=== PATIENT | male | born 1965 | race Two or more races ===

== ENCOUNTER 2018-07-29 14:52 | Emergency (ER) | payer BC ==
[~2018-07-29] VITALS: Ht 180.3 cm; Wt 84.8 kg
[2018-07-29] MEDS ORDERED: methylPREDNISolone SOD SUCC 125 MG/2ML VIAL ONE (15:18)
--- NOTE | 2018-07-29 15:23 | NUR ---
PREM 87 FROM HOME C/O ALLERGIC REACTION POSSIBLE INSECT BITE. EPI 0.5MG IM GIVEN AND BENADRYL 50MG IV GIVEN AROUND 1446. AOX4, AMB WITH STEADY GAIT, VSS, ON RA. NO ACUTE DISTRESS NOTED. AT BEDSIDE. READY FOR EVAL.
[2018-07-29] MEDS ORDERED: IPRATROPIUM NEB FS 0.5 MG/2.5 ML AMPUL.NEB NEB ONE (15:30)
[2018-07-29] MEDS ORDERED: methylPREDNISolone SOD SUCC 125 MG/2ML VIAL IV ONE (15:30)
[2018-07-29] MEDS ORDERED: ALBUTEROL FS 2.5 MG/3 ML VIAL.NEB NEB ONE (15:30)
[2018-07-29] MEDS ORDERED: FAMOTIDINE/PF INJ 20 MG/2 ML VIAL IV ONE ×2 (15:30→15:35)
[2018-07-29] MEDS ORDERED: IPRATROPIUM NEB FS 0.5 MG/2.5 ML AMPUL.NEB ONE (15:40)
[2018-07-29] MEDS ORDERED: ALBUTEROL FS 2.5 MG/3 ML VIAL.NEB ONE (15:40)
--- NOTE | 2018-07-29 15:40 | NUR ---
RT AT BEDSIDE FOR BREATHING TX
--- NOTE | 2018-07-29 16:59 | NUR ---
IV removed. Catheter intact and site benign. Pressure and 4x4 applied to site. No bleeding noted.Patient discharged to home in stable condition. Written and verbal after care instructions given. Patient verbalizes understanding of instruction.
[2018-07-29 17:04] VITALS: BP 133/99
== END 2018-07-29 17:00 | disposition home or self-care (01) ==
LOC: ER 15:00
DX: T63.481A Toxic effect of venom of other arthropod, accidental (unintentional), initial encounter (principal); R06.02 Shortness of breath; Z60.2 Problems related to living alone; Y92.89 Other specified places as the place of occurrence of the external cause
CPT/HCPCS: 94640 ×2; 96374; 96375; 99284; J2930; J3490

== ENCOUNTER 2025-02-18 19:58 | Emergency (ER) | payer BC ==
[~2025-02-18] VITALS: Ht 180.3 cm; Wt 73.0 kg
[2025-02-18 20:49] VITALS: TEMP 98.2
[2025-02-18] MEDS ORDERED: KETOROLAC TROMETHAMINE 15 MG/ML VIAL ONE ×2 (21:26→21:27)
[2025-02-18] MEDS: KETOROLAC TROMETHAMINE 15 MG/ML VIAL IV ONE (21:35)
[2025-02-18] MEDS ORDERED: BACLOFEN (10 MG) 10 MG TABLET ONE (21:38)
[2025-02-18] MEDS: BACLOFEN (10 MG) 10 MG TABLET PO ONE (21:40)
[2025-02-18 21:44] LABS: PLATELET COUNT (AUTO) 220 K/uL (150-450); RED BLOOD CELL COUNT(AUTO) 5.24 MIL/uL (4.5-6.0); RED CELL DISTRIBUTION WIDTH 13.1 % (11.5-15.0); WHITE BLOOD COUNT (AUTO) 10.2 K/uL (4.3-11.0)
[2025-02-18 21:52] LABS: CALCIUM, SERUM 9.3 mg/dL (8.5-10.1); CREATININE 1.0 mg/dL (0.6-1.3); SODIUM SERUM 142.0 mmol/L (136-145); UREA NITROGEN, BLOOD 16.0 mg/dL (7-18)
[2025-02-18] MEDS ORDERED: DIATR MEGLU/DIATRIZOATE SODIUM 120 ML BOTTLE (GASTROGRAPHIN) ONE (22:11)
[2025-02-18] MEDS ORDERED: CT SWABBABLE VALVE TRANS SET 1 EA INFUS.SET MC ONE (22:11)
[2025-02-18] MEDS ORDERED: IV NS 0.9% 250 ML IV ONE (22:11)
[2025-02-18] MEDS ORDERED: IOHEXOL-300 100 ML VIAL IV ONE (22:11)
[2025-02-18] MEDS ORDERED: TAMS-12 PO (22:18)
[2025-02-18] MEDS ORDERED: KETO10TA2 PO (22:18)
[2025-02-18] MEDS ORDERED: ONDA4TAB5 PO (22:18)
[2025-02-18 22:31] VITALS: BP 125/80; O2SAT 97
== END 2025-02-18 22:30 | disposition home or self-care (01) ==
LOC: ER 20:01
DX: N13.2 Hydronephrosis with renal and ureteral calculous obstruction (principal)
CPT/HCPCS: 99285; 74176; 96374; 85025; 80048; 36415; J1885 ×2; J7050; Q9963; Q9967